=== PATIENT | male | born 1935 | race Caucasian/White ===

== ENCOUNTER 2017-09-10 15:57 | Inpatient (IN) | payer OTHER ==
[~2017-09-10] VITALS: Ht 175.3 cm; Wt 96.2 kg
[2017-09-10 17:19] LABS: BASOPHIL % 0.3 % (0-2); PLATELET COUNT 196 x10^3mcL (130-400); RED CELL DISTRIBUTION WIDTH 14.1 % (11.5-14.5)
[2017-09-10 17:23] LABS: CALCIUM 8.5 mg/dL (8.5-10.1); CARBON DIOXIDE 27.8 mmol/L (21-32); CHLORIDE SERUM 104 mmol/L (98-107); CREATININE SERUM 0.8 mg/dL (0.7-1.3); GLUCOSE SERUM 103 mg/dL (74-106); POTASSIUM SERUM 4.2 mmol/L (3.5-5.1); SODIUM SERUM 140 mmol/L (136-145)
[2017-09-10 17:27] LABS: ALBUMIN 3.6 g/dL (3.4-5.0); ALKALINE PHOSPHATASE 100 U/L (46-116); ALT/SGPT 27 U/L (16-63); AST/SGOT 11 U/L (15-37); BILIRUBIN TOTAL 1.5 mg/dL (0.20-1.00)
[2017-09-10 21:27] LABS: MAGNESIUM 2.4 mg/dL (1.8-2.4); PHOSPHOROUS 3.5 mg/dL (2.5-4.9)
[2017-09-10 21:34] LABS: T3 TOTAL 0.68 ng/mL
[2017-09-10 21:37] LABS: FREE T4 0.73 ng/dL (0.76-1.46); T4(THYROXINE) 5.9 ug/dL (4.7-13.3)
[2017-09-10 21:52] VITALS: BP 120/77
[2017-09-11 05:12] VITALS: BP 105/69
[2017-09-11 06:33] LABS: CALCIUM 8.1 mg/dL (8.5-10.1); CARBON DIOXIDE 23.8 mmol/L (21-32); CHLORIDE SERUM 106 mmol/L (98-107); CREATININE SERUM 0.6 mg/dL (0.7-1.3); GLUCOSE SERUM 104 mg/dL (74-106); MAGNESIUM 2.4 mg/dL (1.8-2.4); PHOSPHOROUS 3.4 mg/dL (2.5-4.9); POTASSIUM SERUM 3.5 mmol/L (3.5-5.1); SODIUM SERUM 139 mmol/L (136-145)
[2017-09-11 06:34] LABS: BASOPHIL % 0.2 % (0-2); PLATELET COUNT 182 x10^3mcL (130-400); RED CELL DISTRIBUTION WIDTH 14.1 % (11.5-14.5)
[2017-09-11 06:35] VITALS: BP 120/77
[2017-09-11 09:02] VITALS: Ht 175.3 cm; Wt 96.2 kg
[2017-09-11 09:13] VITALS: BP 114/69
[2017-09-11] MEDS ORDERED: ZOCOR20 MG PO (09:22)
[2017-09-11] MEDS ORDERED: PROS5 PO (09:22)
[2017-09-11] MEDS ORDERED: CARDURA8 MG PO (09:22)
[2017-09-11] MEDS ORDERED: VITC PO (09:23)
[2017-09-11] MEDS ORDERED: D-20001 TAB PO (09:23)
[2017-09-11] MEDS ORDERED: [UNRECOGNIZED DRUG - OTHER] PO (09:23)
[2017-09-11] MEDS ORDERED: METFORMIN HCL500 MG PO (09:23)
[2017-09-11] MEDS ORDERED: MULTI-VITAMINS1 TAB PO (09:24)
[2017-09-11] MEDS ORDERED: CALCIUM CITRAT1 EAC8 (09:25)
[2017-09-11 12:29] VITALS: BP 115/77
[2017-09-11 13:35] LABS: microscopic required? NO
[2017-09-11 14:22] LABS: urine erythrocyte NEGATIVE (NEGATIVE)
[2017-09-11 14:35] LABS: AMPHETAMINE QUAL UR NONE DETECTED (NEG <=1000)
[2017-09-11 17:01] VITALS: BP 112/75
[2017-09-11 20:29] VITALS: BP 115/72
[2017-09-12 06:19] VITALS: BP 109/70
[2017-09-12 06:56] LABS: BASOPHIL % 0.2 % (0-2); PLATELET COUNT 177 x10^3mcL (130-400); RED CELL DISTRIBUTION WIDTH 14.4 % (11.5-14.5)
[2017-09-12 07:04] LABS: CALCIUM 8.4 mg/dL (8.5-10.1); CARBON DIOXIDE 25.8 mmol/L (21-32); CHLORIDE SERUM 106 mmol/L (98-107); CREATININE SERUM 0.8 mg/dL (0.7-1.3); GLUCOSE SERUM 111 mg/dL (74-106); MAGNESIUM 2.4 mg/dL (1.8-2.4); POTASSIUM SERUM 4.3 mmol/L (3.5-5.1); SODIUM SERUM 139 mmol/L (136-145)
[2017-09-12 09:05] VITALS: BP 127/76
[2017-09-12 13:32] VITALS: BP 108/71
[2017-09-12] MEDS ORDERED: TESSALON PERLE100 MG PO (15:43)
[2017-09-12] MEDS ORDERED: GOOD SENSE OMEP20 MG PO (15:56)
[2017-09-12 16:23] VITALS: BP 108/71
[2017-09-12 17:01] VITALS: BP 102/65
== END 2017-09-12 17:20 | disposition home or self-care (01) | DRG 391 ==
LOC: ED 15:57 → DU 20:45
PROVIDERS: Emergency Medicine; Family Medicine
DX: K44.0 Diaphragmatic hernia with obstruction, without gangrene (principal); J96.01 Acute respiratory failure with hypoxia; G93.41 Metabolic encephalopathy; R55 Syncope and collapse; R13.19 Other dysphagia; G58.8 Other specified mononeuropathies; K80.20 Calculus of gallbladder without cholecystitis without obstruction; K57.30 Diverticulosis of large intestine without perforation or abscess without bleeding; N40.0 Benign prostatic hyperplasia without lower urinary tract symptoms; E11.51 Type 2 diabetes mellitus with diabetic peripheral angiopathy without gangrene; E78.2 Mixed hyperlipidemia; E03.9 Hypothyroidism, unspecified; E66.9 Obesity, unspecified; Z68.31 Body mass index [BMI] 31.0-31.9, adult
CPT/HCPCS: 36600; 82962; 83880; 84439; J3230; J7030; J7620; Q0092; Q0161; Q9967